=== PATIENT | female | born 1975 | race Caucasian/White ===

== ENCOUNTER → 2017-04-26 04:00 | Emergency (ER) | payer SELFPAY | END | disposition left against medical advice (07) | LOC: ED 04:00 | DX: S59.912A Unspecified injury of left forearm, initial encounter (principal); Z53.21 Procedure and treatment not carried out due to patient leaving prior to being seen by health care provider; X58.XXXA Exposure to other specified factors, initial encounter; Y93.89 Activity, other specified; Y92.89 Other specified places as the place of occurrence of the external cause; Y99.8 Other external cause status ==